=== PATIENT | female | born 1970 | race Caucasian/White ===

== ENCOUNTER 2017-03-06 02:09 | Emergency (ER) | payer SELFPAY ==
[2017-03-06] MEDS: KETOROLAC 30 MG INJ IV (06:32)
[2017-03-06 08:09] LABS: ADD UMIC YES; UR ASCORBIC ACID NEGATIVE (NEGATIVE); UR BACTERIA MANY /HPF (NONE SEEN); UR BILIRUBIN (Dip) NEGATIVE (NEGATIVE); UR BLOOD (Dip) 2+ mg/dL (NEGATIVE); UR CALCIUM OXALATE CRYSTAL MODERATE /HPF (NONE SEEN); UR CLARITY SLIGHTLY CLOUDY (CLEAR); UR COLOR YELLOW (YELLOW); UR GLUCOSE (Dip) NEGATIVE (NEGATIVE); UR KETONES (Dip) NEGATIVE (NEGATIVE); UR LEUKOCYTE ESTERASE (Dip) NEGATIVE Leu/ul (NEGATIVE); UR MUCUS FEW /HPF (NONE SEEN); UR NITRITE (Dip) POSITIVE (NEGATIVE); UR RBC 12 /HPF (0-5); UR TOTAL PROTEIN (Dip) NEGATIVE (NEGATIVE); UR UROBILINOGEN (Dip) NEGATIVE (NEGATIVE); UR WBC 4 /HPF (0-5)
[2017-03-06 08:28] LABS: ADD MAN DIFF? NO
[2017-03-06 08:39] LABS: BASOPHILS % 0.5 % (0.0-2.0); EOSINOPHILS # 0.2 10^3/ul (0.0-0.5); EOSINOPHILS % 2.3 % (0.0-7.0); HEMATOCRIT 37.4 % (37.0-47.0); LYMPHOCYTES # 3.1 10^3/ul (0.8-2.9); LYMPHOCYTES % 42.1 % (15.0-51.0); MEAN CORPUSCULAR HEMOGLOBIN 30.2 pg (29.0-33.0); MEAN CORPUSCULAR HGB CONC 34.8 g/dl (32.0-37.0); MEAN PLATELET VOLUME 11.6 fl (7.4-10.4); MONOCYTE # 0.6 10^3/ul (0.3-0.9); MONOCYTES % 7.9 % (0.0-11.0); NEUTROPHIL # 3.5 10^3/ul (1.6-7.5); NEUTROPHILS % 47.1 % (39.0-77.0); PLATELET COUNT 275 10^3/UL (140-415); RED CELL DISTRIBUTION WIDTH 12.7 % (11.5-14.5)
[2017-03-06 08:39] LABS: WHITE BLOOD COUNT 7.4 10^3/ul (4.8-10.8)
[2017-03-06 08:51] LABS: ALANINE AMINOTRANSFERASE 77 IU/L (13-69); ALBUMIN 4.2 g/dl (3.3-4.9); ALBUMIN/GLOBULIN RATIO 1.23; ALKALINE PHOSPHATASE 118 IU/L (42-121); ANION GAP 19 (8-16); ASPARTATE AMINO TRANSFERASE 50 IU/L (15-46); BILIRUBIN,INDIRECT 0.4 mg/dl (0-1.1); BILIRUBIN,TOTAL 0.4 mg/dl (0.2-1.3); BLOOD UREA NITROGEN 11 mg/dl (7-20); CALCIUM 9.5 mg/dl (8.4-10.2); CARBON DIOXIDE 23 mmol/L (21-31); CHLORIDE 104 mmol/L (97-110); CREATINE KINASE 85 IU/L (23-200); CREATININE 0.48 mg/dl (0.44-1.00); GLUCOSE 100 mg/dl (70-220); SODIUM 142 mmol/L (135-144); TOTAL PROTEIN 7.6 g/dl (6.1-8.1)
[2017-03-06 08:57] LABS: INR 0.95; PROTIME 12.8 Sec (11.9-14.9)
[2017-03-06 08:58] LABS: PARTIAL THROMBOPLASTIN TIME 32.2 Sec (25.0-35.0)
[2017-03-06 09:04] LABS: B-TYPE NATRIURETIC PEPTIDE 17 PG/ML (0-125); CK INDEX 1.5; CK-MB 1.26 ng/ml (0.0-2.4)
[2017-03-06 09:08] LABS: T3 UPTAKE 30.4 % (23.5-40.5); T4 (THYROXINE) 11.2 ug/dl (5.5-11.0)
[2017-03-06 09:10] LABS: TROPONIN-I < 0.012 ng/ml (0.00-0.12)
== END 2017-03-06 11:46 | disposition home or self-care (01) ==
LOC: E/R 02:09 → FTE 11:46
DX: R00.2 Palpitations (principal); N30.90 Cystitis, unspecified without hematuria; R07.9 Chest pain, unspecified
CPT/HCPCS: 36415; 71045; 80053; 81001; 82550; 82553; 83880; 84436; 84479; 84484; 85025; 85610; 85730; 93005; 99284-25